=== PATIENT | female | born 1935 | race Caucasian/White ===

== ENCOUNTER 2017-03-31 16:41 | Emergency (ER) | payer OTHER ==
[~2017-03-31] VITALS: Ht 167.6 cm; Wt 98.0 kg
[~2017-03-31 16:41] MED LIST: ALLOPURINOL300 MG PO; ASPIRIN81 M2 PO; CALCIUM 600 +1 EA12 PO; CARDIZEM CD,CA240 MG PO; CATAPRES0.1 MG PO; COUMADIN2.5 MG PO; COUMADIN5 MG PO; KLOR-CON M2020 MEQ PO; LOVENOX120 MG/0.8 SC; METOPROLOL SUC200 MG PO; METOPROLOL SUCC25 MG PO; METOPROLOL SUCC50 MG PO; PRILOSEC40 MG PO; REGLAN5 MG PO; SIMVASTATIN40 MG PO
[2017-03-31 20:28] VITALS: BP 121/51
== END 2017-03-31 20:29 | disposition home or self-care (01) ==
LOC: EME 16:41
DX: S01.01XA Laceration without foreign body of scalp, initial encounter (principal); W01.0XXA Fall on same level from slipping, tripping and stumbling without subsequent striking against object, initial encounter; I10 Essential (primary) hypertension; E78.5 Hyperlipidemia, unspecified; Z86.711 Personal history of pulmonary embolism; Z79.01 Long term (current) use of anticoagulants; Z96.659 Presence of unspecified artificial knee joint; Z85.3 Personal history of malignant neoplasm of breast; Z79.82 Long term (current) use of aspirin; Z88.0 Allergy status to penicillin
CPT/HCPCS: 70450; 72125; 99281; 99284